=== PATIENT | female | born 1985 | race American Indian/Alaskan Native ===

== ENCOUNTER 2022-05-17 14:01 | Emergency (ER) | payer MEDICAID ==
[2022-05-17 14:12] VITALS: BP 97/68
== END 2022-05-18 05:45 | disposition left against medical advice (07) ==
LOC: ED 14:01
DX: T15.91XA Foreign body on external eye, part unspecified, right eye, initial encounter (principal); Z53.21 Procedure and treatment not carried out due to patient leaving prior to being seen by health care provider